=== PATIENT | female | born 1980 | race Caucasian/White ===

== ENCOUNTER 2016-10-02 12:10 | Emergency (ER) | payer BC, OTHER ==
[~2016-10-02] VITALS: Ht 157.5 cm; Wt 98.0 kg
[2016-10-02 12:18] VITALS: Ht 157.5 cm; Wt 98.0 kg
[2016-10-02] MEDS ORDERED: IBUP-1542 PO (12:41)
[2016-10-02] MEDS ORDERED: CEPH500C PO (12:41)
--- NOTE | 2016-10-02 12:46 | ERD ---
ER Documentation Chief Complaint Date/Time DATE: 10/02/16 TIME: 12:45 Chief Complaint Complains of left facial and jaw pain x 2 days HPI This 35-year-old female complains of pain in the left upper dental area for last 2 days patient has a history of trauma, fevers, difficulty swallowing, difficulty breathing. Patient had a dental visit 2 months ago without any acute findings by history. ROS All systems reviewed and are negative except as per history of present illness. Medications Home Meds Active Scripts Cephalexin* (Cephalexin*) 500 Mg Capsule, 500 MG PO Q6, #28 CAP Prov:YOLANDA PINTO MD 10/02/16 Ibuprofen* (Ibuprofen*) 600 Mg Tablet, 600 MG PO Q6, #20 TAB Prov:YOLANDA PINTO MD 10/02/16 Allergies Allergies: Coded Allergies: No Known Allergy (Unverified , 10/02/16) PMhx/Soc Medical and Surgical Hx: pt denies Medical Hx, pt denies Surgical Hx Hx Alcohol Use: No Hx Substance Use: No Hx Tobacco Use: No Smoking Status: Never smoker Physical Exam Vitals Vital Signs Date Time Temp Pulse Resp B/P Pulse Ox O2 Delivery O2 Flow Rate FiO2 10/02/16 12:18 98.6 95 20 120/73 97 Physical Exam Const: [], [id number] per Head: Atraumatic Eyes: Normal Conjunctiva ENT: Normal External Ears, Nose and Mouth. Mild tenderness at the base of the left upper canine. No significant swelling or induration or deformities appreciated. No appreciable carious and airways patent. Neck: Full range of motion..~ No meningismus. Resp: Clear to auscultation bilaterally Cardio: Regular rate and rhythm, no murmurs Abd: Soft, non tender, non distended. Normal bowel sounds Skin: No petechiae or rashes Back: No midline or flank tenderness Ext: No cyanosis, or edema Neur: Awake and alert Psych: Normal Mood and Affect Procedures/MDM This patient has left upper dental pain with essentially normal exam. Current signs or symptoms do not suggest abscess, airway obstruction, sepsis, fracture, dislocation. She will be treated empirically with Keflex and ibuprofen and dental follow-up. The patient was stable with no new complaints during the ER course. Clinically, there is no current evidence to suggest meningitis, sepsis, acute abdomen, pneumonia, acute coronary syndrome, pulmonary embolism, or any other emergent condition appearing to require further evaluation or hospitalization. The patient should certainly return for any new or worsening symptoms per the aftercare instructions. They should otherwise follow-up with her primary care doctor for reevaluation this week. Departure Diagnosis: Primary Impression: Pain, dental Condition: Stable Patient Instructions: Dental Pain Referrals: [facility] ([facility] walk in clinic) Additional Instructions: Cheque otro vez con jones doctor primario en el proximo durand or regresa para mas o nueva simptomas. YOLANDA PINTO MD Oct 02, 2016 12:46
== END 2016-10-02 12:48 | disposition home or self-care (01) ==
LOC: FTE 12:10
DX: K08.89 Other specified disorders of teeth and supporting structures (principal)
CPT/HCPCS: 99283

== ENCOUNTER 2017-03-29 06:09 | Day surgery (SDC) | END 2017-03-29 09:45 | disposition home or self-care (01) ==

== ENCOUNTER 2017-06-25 07:20 | Emergency (ER) | END 2017-06-25 10:24 | disposition home or self-care (01) ==

== ENCOUNTER 2017-11-05 07:33 | Day surgery (SDC) | END 2017-11-05 16:18 | disposition home or self-care (01) ==

== ENCOUNTER 2018-05-08 11:16 | Emergency (ER) | payer BC ==
[~2018-05-08] VITALS: Ht 167.6 cm; Wt 60.1 kg
[~2018-05-08 11:16] MED LIST: CLOT10TR MM; CYAN100T PO; FLUT16SP17 NASAL; LANS15CA5 PO; RANI300T PO
[2018-05-08 11:22] VITALS: BP 129/77; PULSE 113; RESP 18; Ht 167.6 cm; Wt 60.1 kg
[2018-05-08] MEDS ORDERED: BENZ-6 PO (13:05)
[2018-05-08] MEDS ORDERED: FLUT9.9S NASAL (13:05)
[2018-05-08] MEDS ORDERED: ALBU18HF INHALATION (13:05)
--- NOTE | 2018-05-08 13:08 | ERD ---
ER Documentation Chief Complaint Chief Complaint throat pain and cough x 3 days HPI During the patient's encounter translation services were utilized Language: Turkish Source: Video 37-year-old female no significant past medical history presents with 3-5 days of cough congestion and rhinorrhea. The patient also describes some cough that is dry nonproductive. No significant shortness of breath. She has a mild sore throat. No recent travel, sick contacts, antibiotics. ROS All systems reviewed and are negative except as per history of present illness. Medications Home Meds Active Scripts Benzonatate* (Tessalon Perle*) 100 Mg Capsule, 100 MG PO Q8H PRN for COUGH, #10 CAP Prov:HILARIO GODFREY MD 05/08/18 Albuterol Sulfate* (Ventolin HFA*) 18 Gm Hfa.aer.ad, 2 PUFF INHALATION Q4H, #1 INHALER Prov:HILARIO GODFREY MD 05/08/18 Fluticasone Propionate (Flonase Allergy Relief) 9.9 Ml [place].susp, 1 SPRAY NASAL DAILY for 7 Days, #1 BOTTLE TO EACH NOSTRIL Prov:HILARIO GODFREY MD 05/08/18 Reported Medications Ranitidine Hcl* (Ranitidine Hcl*) 300 Mg Tablet, 300 MG PO HS, #30 TAB 11/05/17 Cyanocobalamin* (Vitamin B12*) 100 Mcg Tab, 100 MCG PO DAILY, TAB 11/05/17 Lansoprazole* (Lansoprazole*) 15 Mg Capsule.dr, 15 MG PO DAILY, CAP 11/05/17 Fluticasone Propionate* (Fluticasone Propionate* Nasal) 50 Mcg/[place] - 16 Gm [place].susp, 1 SPRAY NASAL DAILY, #1 BOTTLE TO EACH NOSTRIL 11/05/17 Clotrimazole* (Clotrimazole*) 10 Mg Silva, 10 MG MM TID, TAB 11/05/17 Allergies Allergies: Coded Allergies: No Known Allergy (Unverified , 11/05/17) PMhx/Soc History of Surgery: Yes (radha appy, ) Anesthesia Reaction: No Hx Neurological Disorder: No Hx Respiratory Disorders: No Hx Cardiac Disorders: No Hx Psychiatric Problems: No Hx Miscellaneous Medical Probl: No Hx Alcohol Use: No Hx Substance Use: No Hx Tobacco Use: No Smoking Status: Never smoker Fmx Family History: No diabetes Physical Exam Vitals Vital Signs Date Temp Pulse Resp B/P (MAP) Pulse Ox O2 O2 Flow FiO2 Time Delivery Rate 05/08/18 98.4 113 18 129/77 97 11:22 (94) Physical Exam General: Well developed, well nourished, no acute distress Head: Normocephalic, atraumatic. Eyes: Pupils equally reactive, EOM intact ENT: Moist mucous membranes, posterior pharynx without swelling or exudates, uvula midline, Timentin membranes are nonbulging bilaterally Neck: Supple, no lymphadenopathy Respiratory: Lungs clear bilaterally, no distress Cardiovascular: RRR, no murmurs, rubs, or gallops Abdominal: Soft, non-tender, non-distended, no peritoneal signs : Deferred MSK: No edema, no unilateral swelling, 5/5 strength Neurologic: Alert and oriented, moving all extremities, normal speech, no focal weakness, no cerebellar signs Skin: No rash Psych: Normal mood Procedures/MDM The patient's clinical presentation is very consistent with an acute viral syndrome. The patient does not exhibit any clinical signs or symptoms concerning for serious bacterial infection or systemic illness. Based on history and clinical exam findings the patient does not appear to have evidence of pneumonia, strep pharyngitis, urinary tract infection, bacteremia, sepsis, or meningitis. For these reasons I do not believe it is necessary to obtain laboratory testing or diagnostic imaging. I believe it would be appropriate for symptom control, and close outpatient primary care follow-up. We discussed follow up with the patient's primary care doctor within 24 to 48 hours as needed. We also discussed return to the emergency room for worsening symptoms or worsening condition. Discharge Medications: Tessalon Perle, albuterol, Flonase Departure Diagnosis: Primary Impression: Acute bronchitis Bronchitis organism: unspecified organism Qualified Codes: J20.9 - Acute bronchitis, unspecified Condition: Stable Patient Instructions: Acute Bronchitis [facility] Usted se moon hecho un examen mdico de control que le indica que no est en valeria condicin que requiera tratamiento urgente en el Departamento de Emergencia. Un estudio ms profundo y el tratamiento de jones condicin pueden esperar sin ningn riesgo hasta que usted sea atendida/o en el consultorio de jones mdico o valeria clnica. Es responsabilidad suya arreglar valeria adalberto para el seguimiento del carlota. MANEJO DE CONDICIONES NO URGENTES EN EL FUTURO 1) Si usted tiene un mdico de atencin primaria: Usted debera llamar a jones mdico de atencin primaria antes de venir al departamento de emergencia. Despus de las horas de consultorio, jones doctor o jones asociado/a est disponible por telfono. El mdico o enfermero de amarjit en el servicio telefnico puede asesorarle por anthony medio para atender el problema, o carlota contrario se puede programar valeria adalberto. 2) Si usted no tiene un mdico de atencin primaria: Llame al mdico o clnica de referencia que aparece abajo yovana las horas de consultorio para hacer valeria adalberto para que le vean. CLINICAS: [facility] [phone] [facility] [phone] [facility]. [facility] [phone] [facility]. [place] [phone] [facility]. [place] [phone] [facility]. [phone] [address] [facility]. [facility] () Usted se moon hecho un examen mdico de control que le indica que no est en valeria condicin que requiera tratamiento urgente en el Departamento de Emergencia. Un estudio ms profundo y el tratamiento de jones condicin pueden esperar sin ningn riesgo hasta que usted sea atendida/o en el consultorio de jones mdico o valeria clnica. Es responsabilidad suya arreglar valeria adalberto para el seguimiento del carlota. MANEJO DE CONDICIONES NO URGENTES EN EL FUTURO 1) Si usted tiene un mdico de atencin primaria: Usted debera llamar a jones mdico de atencin primaria antes de venir al departamento de emergencia. Despus de las horas de consultorio, jones doctor o jones asociado/a est disponible por telfono. El mdico o enfermero de amarjit en el servicio telefnico puede asesorarle por anthony medio para atender el problema, o carlota contrario se puede programar valeria adalberto. 2) Si usted no tiene un mdico de atencin primaria: Llame al mdico o condado institucions de referencia que aparece abajo yovana las horas de consultorio para hacer valeria adalberto para que le vean. SI USTED NO PUEDE PAGAR PARA BARBIE UN MEDICO puede ir a: [facility] [phone] [place] [address] [facility] [address] [place] [address] [facility] [address] [place] [address] [facility]A [facility] [address] [place], [place] [phone] Additional Instructions: Llame al doctor nombrado abajo (Referral Sources) MAANA y shaun valeria ADALBERTO PARA DENTRO DE VALERIA SEMANA. Dgale a la secretaria que nosotros le instruimos hacer esta adalberto.Avise o llame si jones condicin se empeora antes de la adalberto. HILARIO GODFREY MD May 08, 2018 13:08
== END 2018-05-08 13:19 | disposition home or self-care (01) ==
LOC: E/R 11:16
DX: J20.9 Acute bronchitis, unspecified (principal)
CPT/HCPCS: 99283